=== PATIENT | male | born 1970 | race Caucasian/White ===

== ENCOUNTER 2018-09-11 19:59 | Emergency (ER) | payer BC, OTHER | END 2018-09-11 20:13 | disposition left against medical advice (07) | LOC: ER 20:03 | DX: Z53.21 Procedure and treatment not carried out due to patient leaving prior to being seen by health care provider (principal) ==

== ENCOUNTER 2019-03-18 18:28 | Emergency (ER) | payer OTHER ==
[~2019-03-18] VITALS: Ht 182.9 cm; Wt 90.7 kg
--- NOTE | 2019-03-18 18:31 | NUR ---
Dr Dixon is at bedside. Family is also at bedside.
[2019-03-18] MEDS ORDERED: ASPI81TA31 PO (18:41)
[2019-03-18] MEDS ORDERED: TRINTELLIX (18:41)
[2019-03-18] MEDS ORDERED: SINGULAIR (18:41)
[2019-03-18] MEDS ORDERED: CRESTOR (18:41)
[2019-03-18] MEDS ORDERED: methylPREDNISolone SOD SUCC 125 MG/2 ML VIAL ONE (18:42)
[2019-03-18] MEDS ORDERED: FAMOTIDINE. 20 MG/2 ML VIAL IV ONE ×2 (18:42→18:45)
[2019-03-18] MEDS ORDERED: IV NORMAL SALINE 1000 ML BAG IV ONE ×2 (18:45→21:00)
[2019-03-18] MEDS ORDERED: methylPREDNISolone SOD SUCC 125 MG/2 ML VIAL IV ONE (18:45)
[2019-03-18 18:59] LABS: BASOPHILS % (AUTO) 0.2 % (0.0-2.0); EOSINOPHILS # (AUTO) 0.1 K/uL (0.0-0.7); EOSINOPHILS % (AUTO) 0.8 % (0.0-7.0); HEMATOCRIT 40.7 % (36.7-47.1); HEMOGLOBIN 13.8 g/dL (12.5-16.3); LYMPHOCYTES % (AUTO) 44.8 % (20.5-51.5); MEAN CORPUSCULAR HEMOGLOBIN 29.6 uug (23.8-33.4); MEAN CORPUSCULAR HGB CONC 34 g/dL (32.5-36.3); MEAN CORPUSCULAR VOLUME 87.1 fL (73.0-96.2); MONOCYTES # (AUTO) 0.3 K/uL (2.0-10.0); MONOCYTES % (AUTO) 3.4 % (0.0-11.0); NEUTROPHILS # (AUTO) 4.5 K/uL (1.8-8.9); NEUTROPHILS % (AUTO) 50.8 % (38.5-71.5); PLATELET COUNT (AUTO) 206 K/uL (152-348); RED BLOOD CELL COUNT(AUTO) 4.67 MIL/uL (4.06-5.63); WHITE BLOOD COUNT (AUTO) 8.9 K/uL (3.6-10.2)
[2019-03-18 19:06] LABS: CREATININE 1.2 mg/dL (0.6-1.3); POTASSIUM 3.5 mmol/L (3.5-5.1)
--- NOTE | 2019-03-18 19:09 | NUR ---
hands off report given to FAUSTO Delarosa IV fluid bag is still infusing.
--- NOTE | 2019-03-18 19:30 | NUR ---
assess pt overall appearances fair denies pain/discomfort family at bedside awaiting to be reeval by er physician, comfort and safety maintained
--- NOTE | 2019-03-18 20:30 | NUR ---
pt was given a tray of foods jacquelyn well condition remains stable
--- NOTE | 2019-03-18 21:30 | NUR ---
pt was given another liter of iv fluids jacquelyn well
--- NOTE | 2019-03-18 22:05 | NUR ---
pt discharge to home with family discharge teaching and prescriptions teaching given voiced his understanding well condition stable without complaint hl remained site wnl all personal belonging with pt
[2019-03-18 22:23] VITALS: BP 113/88
--- NOTE | 2019-03-18 22:25 | NUR ---
Patient discharged to home in stable conditon with and daughter at bed side. Provided patient with pair of pants and gown, patient stated his will be driving hime home. Written and verbal after care instructions given. Patient verbalizes understanding of instructions.
== END 2019-03-18 22:25 | disposition home or self-care (01) ==
LOC: ER 18:29
DX: T78.09XA Anaphylactic reaction due to other food products, initial encounter (principal); I25.10 Atherosclerotic heart disease of native coronary artery without angina pectoris; J45.909 Unspecified asthma, uncomplicated; Z88.0 Allergy status to penicillin; Z88.6 Allergy status to analgesic agent; Z88.5 Allergy status to narcotic agent; Z88.8 Allergy status to other drugs, medicaments and biological substances; Z91.013 Allergy to seafood
CPT/HCPCS: 36415; 71045; 80048; 83735; 85025; 93005; 96361; 96374; 96375; 99284; J2930; J3490; A4663; J7030